=== PATIENT | female | born 1985 | race Caucasian/White ===

== ENCOUNTER 2016-04-26 14:43 | Emergency (ER) | payer OTHER ==
[2016-04-26 14:50] VITALS: BP 123/59; PULSE 78; TEMP 98; BMI 27.1
--- NOTE | 2016-04-26 14:51 | PDOC ---
Rapid Medical Evaluation Medical Evaluation: Allergies Allergy/AdvReac Type Severity Reaction Status Date / Time No Known Allergies Allergy Verified 04/26/16 14:46 04/26/16 14:48 I have performed a brief in-person evaluation of this patient. The patient presents with a chief complaint of: n/v decreased po intake, 13 weeks , had us today at medical assembler (Dr grijalva office) which was normal. urine hemoconcentrated Pertinent physical exam findings: VSS I have ordered the following: cbc, comp, mag, ua, ucx, The patient will proceed to the ED for further evaluation. <Raysa Jc - Last Filed: 04/26/16 14:48> Medical Evaluation: Allergies Allergy/AdvReac Type Severity Reaction Status Date / Time No Known Allergies Allergy Verified 04/26/16 14:46 Vital Signs Temp Pulse Resp BP Pulse Ox 98 F 78 18 123/59 100 04/26/16 14:46 04/26/16 14:46 04/26/16 14:46 04/26/16 14:46 04/26/16 14:46 <Marleny Epstein - Last Filed: 04/26/16 16:26> Chief Complaint: Nausea/Vomiting Time Seen by Provider: 04/26/16 14:48
[2016-04-26 15:11] LABS: BASOPHIL 0.4 % (0-2.0); EOSINOPHIL 0.4 % (0-4.5); MCH 30.1 pg (25.7-33.7); MCHC 34.4 g/dl (32.0-36.0); MEAN CELL VOLUME 87.5 fl (80-96); MEAN PLT VOLUME 7.3 fl (7.5-11.1); NEUTROPHILS 77.3 % (42.8-82.8); PLATELET COUNT 270 K/MM3 (134-434); RDW 11.9 % (11.6-15.6); WHITE BLOOD COUNT 9.5 K/mm3 (4.0-10.0)
[2016-04-26 15:38] LABS: ALBUMIN 3.6 g/dl (3.4-5.0); ALK PHOS 54 U/L (45-117); ANION GAP 7 (8-16); BILIRUBIN,TOTAL 0.5 mg/dL (0.2-1.0); CALCIUM 9.1 mg/dL (8.5-10.1); CO2 26 mmol/L (21-32); CREATININE 0.5 mg/dL (0.55-1.02); GLUCOSE,RANDOM 97 mg/dL (74-106); SGOT/AST 10 U/L (15-37); SGPT/ALT 14 U/L (12-78); TOT PROT 7.2 g/dl (6.4-8.2)
[2016-04-26] MEDS ORDERED: SODIUM CHLORIDE 1,000 ML IV STA ×2 (16:20→16:32)
[2016-04-26] MEDS ORDERED: METOCLOPRAMIDE HCL INJECTION 10 MG/2 ML VIAL IVPB ONE (16:32)
[2016-04-26] MEDS ORDERED: METOCLOPRAMIDE HCL INJECTION 10 MG/2 ML VIAL ONE (17:00)
[2016-04-26 17:42] LABS: URINE APPEARANCE CLOUDY; URINE BILIRUBIN NEGATIVE (NEGATIVE); URINE BLOOD NEGATIVE (NEGATIVE); URINE COLOR YELLOW; URINE GLUCOSE (UA) NEGATIVE (NEGATIVE); URINE KETONE NEGATIVE (NEGATIVE); URINE LEUK ESTERASE TRACE (NEGATIVE); URINE NITRITE NEGATIVE (NEGATIVE); URINE PROTEIN NEGATIVE (NEGATIVE); URINE UROBILINOGEN 2.0 E.U/dl E.U./dl (0.2-1.0)
[2016-04-26 17:56] LABS: URINE BACTERIA RARE /hpf (NONE SEEN); URINE MUCUS FEW; URINE RBC 6 /hpf (0-3); URINE WBC 31 /hpf (3-5)
--- NOTE | 2016-04-26 18:16 | PDOC ---
History of Present Illness - General History Source: Patient Exam Limitations: No Limitations <Dony Marino - Last Filed: 04/26/16 18:16> - General History Source: Patient Exam Limitations: No Limitations - History of Present Illness Initial Comments: 04/26/16 19:03 The patient is a 30-year-old female who is 13 weeks , A0, with no significant past medical history, who was sent to the ED by her EQUIPMENT OPERATOR WAGE HAND doctor for IV fluids. Pt visited her EQUIPMENT OPERATOR WAGE HAND doctor (Dr. Nieves) today and had an US that appeared normal. She is experiencing nausea vomiting for the past month. She does have an appetite but she is not able to tolerate food due to the nausea. Pt reports that she feels weak. The patient denies any fever, chills, diarrhea, or abdominal pain. The patient denies any dysuria. The patient denies any vaginal discharge or bleeding. EQUIPMENT OPERATOR WAGE HAND: Dr. Nieves <Marleny Epstein - Last Filed: 04/26/16 19:05> - General Chief Complaint: Nausea/Vomiting Stated Complaint: (PCP SENT) 13 WKS , DEHYDRATION Time Seen by Provider: 04/26/16 14:48 Past History - Past Medical History Asthma: No Cancer: No Cardiac Disorders: No Diabetes: No HTN: No Seizures: No Thyroid Disease: No Other medical history: muscle spasms - Psycho/Social/Smoking Cessation Hx Anxiety: No Suicidal Ideation: No Smoking History: Never smoked Have you smoked in the past 12 months: No Information on smoking cessation initiated: No Hx Alcohol Use: No Drug/Substance Use Hx: No Substance Use Type: None Hx Substance Use Treatment: No <Dony Marino - Last Filed: 04/26/16 18:16> <Marleny Epstein - Last Filed: 04/26/16 19:05> - Past Medical History Allergies/Adverse Reactions: Allergies Allergy/AdvReac Type Severity Reaction Status Date / Time No Known Allergies Allergy Verified 04/26/16 14:46 Home Medications: Ambulatory Orders Metoclopramide HCl [Reglan] 10 mg PO Q6H PRN #20 tablet 04/26/16 NK [No Known Home Medication] 04/26/16 Nitrofurantoin Monohyd/M-Cryst [Macrobid -] 100 mg PO BID #14 capsule 04/26/16 Review of Systems - Review of Systems Able to Perform ROS?: Yes Comments:: 04/26/16 19:03 GENERAL/CONSTITUTIONAL: No fever or chills. (+)weakness HEAD, EYES, EARS, NOSE AND THROAT: No change in vision. No ear pain or discharge. No sore throat. CARDIOVASCULAR: No chest pain or shortness of breath. RESPIRATORY: No cough, wheezing, or hemoptysis. GASTROINTESTINAL: No diarrhea or constipation. (+)nausea, vomiting GENITOURINARY: No dysuria, frequency, or change in urination. MUSCULOSKELETAL: No joint or muscle swelling or pain. No neck or back pain. SKIN: No rash NEUROLOGIC: No headache, vertigo, loss of consciousness, or change in strength/ sensation. ENDOCRINE: No increased thirst. No abnormal weight change. HEMATOLOGIC/LYMPHATIC: No anemia, easy bleeding, or history of blood clots. ALLERGIC/IMMUNOLOGIC: No hives or skin allergy. <Marleny Epstein - Last Filed: 04/26/16 19:05> *Physical Exam - Vital Signs Last Vital Signs Temp Pulse Resp BP Pulse Ox 98 F 78 18 123/59 100 04/26/16 14:46 04/26/16 14:46 04/26/16 14:46 04/26/16 14:46 04/26/16 14:46 <Dony Marino - Last Filed: 04/26/16 18:16> - Vital Signs Last Vital Signs Temp Pulse Resp BP Pulse Ox 98 F 78 18 123/59 100 04/26/16 14:46 04/26/16 14:46 04/26/16 14:46 04/26/16 14:46 04/26/16 14:46 - Physical Exam Comments: 04/26/16 19:04 GENERAL: Awake, alert, and fully oriented, in no acute distress HEAD: No signs of trauma EYES: PERRLA, EOMI, sclera anicteric, conjunctiva clear ENT: Auricles normal inspection, hearing grossly normal, nares patent, oropharynx clear without exudates. (+)Dry mucous membranes. NECK: Normal ROM, supple, no lymphadenopathy, JVD, or masses LUNGS: Breath sounds equal, clear to auscultation bilaterally. No wheezes, and no crackles HEART: Regular rate and rhythm, normal S1 and S2, no murmurs, rubs or gallops ABDOMEN: Soft, nontender, normoactive bowel sounds. No guarding, no rebound. No masses EXTREMITIES: Normal range of motion, no edema. No clubbing or cyanosis. No cords, erythema, or tenderness NEUROLOGICAL: Cranial nerves II through XII grossly intact. Normal speech, normal gait SKIN: Warm, Dry, normal turgor, no rashes or lesions noted <Marleny Epstein - Last Filed: 04/26/16 19:05> ED Treatment Course - LABORATORY CBC & Chemistry Diagram: 04/26/16 15:00 04/26/16 15:00 - ADDITIONAL ORDERS Additional order review: Laboratory Results 04/26/16 04/26/16 16:57 15:00 Sodium 142 Potassium 4.0 Chloride 109 H Carbon Dioxide 26 D Anion Gap 7 L BUN 9 D Creatinine 0.5 L Creat Clearance w eGFR > 60 Random Glucose 97 Calcium 9.1 Magnesium 2.0 Total Bilirubin 0.5 D AST 10 L D ALT 14 D Alkaline Phosphatase 54 D Total Protein 7.2 Albumin 3.6 D Urine Color Yellow Urine Appearance Cloudy Urine pH 7.0 Ur Specific [place] 1.023 Urine Protein Negative Urine Glucose (UA) Negative Urine Ketones Negative Urine Blood Negative Urine Nitrite Negative Urine Bilirubin Negative Urine Urobilinogen 2.0 e.u/dl H Ur Leukocyte Esterase Trace H Urine RBC 6 Urine WBC 31 Ur Epithelial Cells Moderate Urine Bacteria Rare Urine Mucus Few 04/26/16 15:00 RBC 4.58 D MCV 87.5 MCHC 34.4 RDW 11.9 D MPV 7.3 L D Neutrophils % 77.3 Lymphocytes % 16.5 Monocytes % 5.4 Eosinophils % 0.4 D Basophils % 0.4 - Medications Given in the ED: ED Medications Discontinued Medications Generic Name Dose Route Start Last Admin Trade Name Freq PRN Reason Stop Dose Admin Sodium Chloride 1,000 mls @ 1,000 mls/hr 04/26/16 16:20 04/26/16 16:59 Normal Saline - IV 04/26/16 17:19 1,000 mls/hr ASDIR STA Administration Sodium Chloride 1,000 mls @ 1,000 mls/hr 04/26/16 16:32 04/26/16 16:59 Normal Saline - IV 04/26/16 17:31 1,000 mls/hr ASDIR STA Administration Metoclopramide HCl 10 mg 04/26/16 16:32 04/26/16 17:04 Reglan Injection - IVPB 04/26/16 16:33 10 mg ONCE ONE Administration <Dony Marino - Last Filed: 04/26/16 18:16> - LABORATORY CBC & Chemistry Diagram: 04/26/16 15:00 04/26/16 15:00 - ADDITIONAL ORDERS Additional order review: Laboratory Results 04/26/16 04/26/16 16:57 15:00 Sodium 142 Potassium 4.0 Chloride 109 H Carbon Dioxide 26 D Anion Gap 7 L BUN 9 D Creatinine 0.5 L Creat Clearance w eGFR > 60 Random Glucose 97 Calcium 9.1 Magnesium 2.0 Total Bilirubin 0.5 D AST 10 L D ALT 14 D Alkaline Phosphatase 54 D Total Protein 7.2 Albumin 3.6 D Urine Color Yellow Urine Appearance Cloudy Urine pH 7.0 Ur Specific [place] 1.023 Urine Protein Negative Urine Glucose (UA) Negative Urine Ketones Negative Urine Blood Negative Urine Nitrite Negative Urine Bilirubin Negative Urine Urobilinogen 2.0 e.u/dl H Ur Leukocyte Esterase Trace H Urine RBC 6 Urine WBC 31 Ur Epithelial Cells Moderate Urine Bacteria Rare Urine Mucus Few 04/26/16 15:00 RBC 4.58 D MCV 87.5 MCHC 34.4 RDW 11.9 D MPV 7.3 L D Neutrophils % 77.3 Lymphocytes % 16.5 Monocytes % 5.4 Eosinophils % 0.4 D Basophils % 0.4 - Medications Given in the ED: ED Medications Discontinued Medications Generic Name Dose Route Start Last Admin Trade Name Freq PRN Reason Stop Dose Admin Sodium Chloride 1,000 mls @ 1,000 mls/hr 04/26/16 16:20 04/26/16 16:59 Normal Saline - IV 04/26/16 17:19 1,000 mls/hr ASDIR STA Administration Sodium Chloride 1,000 mls @ 1,000 mls/hr 04/26/16 16:32 04/26/16 16:59 Normal Saline - IV 04/26/16 17:31 1,000 mls/hr ASDIR STA Administration Metoclopramide HCl 10 mg 04/26/16 16:32 04/26/16 17:04 Reglan Injection - IVPB 04/26/16 16:33 10 mg ONCE ONE Administration <Marleny Epstein - Last Filed: 04/26/16 19:05> Medical Decision Making - Medical Decision Making 04/26/16 18:17 A portion of this note was documented by scribe services under my direction. I have reviewed the details of the note, within reason, and agree with the documentation with the following case summary and management plan written by me. Patient treated in the ED. Nursing notes are reviewed and incorporated into the medical decision-making. Vital signs reviewed. Peripheral IV access obtained by the nurse, laboratory studies are drawn and sent, reviewed and interpreted by myself. Vital Signs Temp Pulse Resp BP Pulse Ox 98 F 78 18 123/59 100 04/26/16 14:46 04/26/16 14:46 04/26/16 14:46 04/26/16 14:46 04/26/16 14:46 22-year-old female with no past medical history, approximately with 13 weeks sent in by her EQUIPMENT OPERATOR WAGE HAND's doctor's office for hyperemesis gravidarum. She had reportedly had several weeks of nausea and vomiting and poor appetite. She reports that this is similar like her first . She had visited her EQUIPMENT OPERATOR WAGE HAND doctor's office today where she had an ultrasound performed by 's office and was reportedly normal. Patient denies abdominal pain or vaginal bleeding. She was sent in for IVF. I suspect that the patient has hyperemesis gravidarum. CBC, BMP 04/26/16 15:00 04/26/16 15:00 CMP Sodium 142 mmol/L (136-145) 04/26/16 15:00 Potassium 4.0 mmol/L (3.5-5.1) 04/26/16 15:00 Chloride 109 mmol/L (98-107) H 04/26/16 15:00 Carbon Dioxide 26 mmol/L (21-32) D 04/26/16 15:00 Anion Gap 7 (8-16) L 04/26/16 15:00 BUN 9 mg/dL (7-18) D 04/26/16 15:00 Creatinine 0.5 mg/dL (0.55-1.02) L 04/26/16 15:00 Creat Clearance w eGFR > 60 (>60) 04/26/16 15:00 Random Glucose 97 mg/dL (74-106) 04/26/16 15:00 Calcium 9.1 mg/dL (8.5-10.1) 04/26/16 15:00 Magnesium 2.0 mg/dL (1.8-2.4) 04/26/16 15:00 Total Bilirubin 0.5 mg/dL (0.2-1.0) D 04/26/16 15:00 AST 10 U/L (15-37) L D 04/26/16 15:00 ALT 14 U/L (12-78) D 04/26/16 15:00 Alkaline Phosphatase 54 U/L (45-117) D 04/26/16 15:00 Total Protein 7.2 g/dl (6.4-8.2) 04/26/16 15:00 Albumin 3.6 g/dl (3.4-5.0) D 04/26/16 15:00 Urine Test Results Urine Color Yellow 04/26/16 16:57 Urine Appearance Cloudy 04/26/16 16:57 Urine pH 7.0 (5.0-8.0) 04/26/16 16:57 Ur Specific [place] 1.023 (1.001-1.035) 04/26/16 16:57 Urine Protein Negative (NEGATIVE) 04/26/16 16:57 Urine Glucose (UA) Negative (NEGATIVE) 04/26/16 16:57 Urine Ketones Negative (NEGATIVE) 04/26/16 16:57 Urine Blood Negative (NEGATIVE) 04/26/16 16:57 Urine Nitrite Negative (NEGATIVE) 04/26/16 16:57 Urine Bilirubin Negative (NEGATIVE) 04/26/16 16:57 Ur Leukocyte Esterase Trace (NEGATIVE) H 04/26/16 16:57 Urine RBC 6 /hpf (0-3) 04/26/16 16:57 Urine WBC 31 /hpf (3-5) 04/26/16 16:57 Ur Epithelial Cells Moderate /hpf (FEW) 04/26/16 16:57 Urine Bacteria Rare /hpf (NONE SEEN) 04/26/16 16:57 Urine Mucus Few 04/26/16 16:57 Patient was given 2 L of IV fluids and Reglan with significant improvement of symptoms. Patient tolerated by mouth here. Incidentally, patient is urine is infected. We'll prescribe Macrobid. Patient verbalizes understanding and requests to go home. Return precautions given. She will follow with her EQUIPMENT OPERATOR WAGE HAND doctor. I discussed the physical exam findings, ancillary test results and final diagnoses with the patient. I answered all of the patient's questions. The patient was satisfied with the care received and felt comfortable with the discharge plan and treatment plan. The patient will call their primary care physician within 24 hours to arrange follow-up and will return to the Emergency Department with any new, persistant or worsening symptoms. <Dony Marino - Last Filed: 04/26/16 18:16> *DC/Admit/Observation/Transfer - Discharge Dispostion Admit: No <Dony Marino - Last Filed: 04/26/16 18:16> - Attestations Scribe Attestion: 04/26/16 19:05 Documentation prepared by Marleny Epstein, acting as medical technologist microbiology for Dony Marino MD. <Marleny Epstein - Last Filed: 04/26/16 19:05> Diagnosis at time of Disposition: Hyperemesis gravidarum UTI (urinary tract infection) Qualifiers: Urinary tract infection type: site unspecified Hematuria presence: without hematuria Qualified Code(s): N39.0 - Urinary tract infection, site not specified - Discharge Dispostion Disposition: HOME Condition at time of disposition: Improved - Prescriptions Prescriptions: Nitrofurantoin Monohyd/M-Cryst [Macrobid -] 100 mg PO BID #14 capsule Metoclopramide HCl [Reglan] 10 mg PO Q6H PRN #20 tablet PRN Reason: Nausea - Patient Instructions Printed Discharge Instructions: DI for Hyperemesis Gravidarum, DI for Urinary Tract Infection (UTI) Additional Instructions: Please take the macrobid as prescribed for 1 week. For nausea, take 10 mg reglan every 6 hours as needed. Both these medications are safe for . Drink plenty of fluids and rest. Follow up with your follow up manager doctor.
[2016-04-26] MEDS ORDERED: NITROFURANTOIN MACROCRYSTAL 50 MG CAPSULE (FP) ONE (19:13)
[2016-04-26] MEDS ORDERED: NITROFURANTOIN MACROCRYSTAL 50 MG CAPSULE (FP) PO SCH (19:15)
== END 2016-04-26 19:16 | disposition home or self-care (01) ==
LOC: JER 14:43
PROC: 3E0337Z Introduction of Electrolytic and Water Balance Substance into Peripheral Vein, Percutaneous Approach (ICD-10-PCS; principal; 2016-04-26)
PROC: 3E033GC Introduction of Other Therapeutic Substance into Peripheral Vein, Percutaneous Approach (ICD-10-PCS; 2016-04-26)
DX: O21.1 Hyperemesis gravidarum with metabolic disturbance (principal); Z3A.13 13 weeks gestation of pregnancy
CPT/HCPCS: 36415; 80053; 81003; 81015; 83735; 85025; 87086; 99282-25

== ENCOUNTER 2016-06-25 09:39 | Emergency (ER) | payer OTHER ==
[2016-06-25 09:49] VITALS: BMI 27.4
[2016-06-25 11:11] VITALS: BP 99/61; PULSE 82; TEMP 97.7
--- NOTE | 2016-06-25 11:38 | PDOC ---
History of Present Illness - General Chief Complaint: Labor Assessment Stated Complaint: BACK PAIN (21 WKS ) Time Seen by Provider: 06/25/16 11:37 History Source: Patient Exam Limitations: No Limitations - History of Present Illness Initial Comments: CHIEF COMPLAINT: 30 y/o afebrile, approximately 21 week gravid female c/o upper right neck and back pain today. HISTORY OF PRESENT ILLNESS: The patient states that she was doing a lot of cleaning and lifting yesterday. She woke up this morning and the right side of her neck and upper back were sore. She also admitted to some abdominal soreness and was evaluated and cleared by L&D prior to coming to be evaluated in the ER. She denies fall, head trauma, changes in vision/hearing, n/v/d, CP, SOB, vaginal bleeding, abnormal vaginal discharge. Vital signs on arrival are notable for pulse of 93. REVIEW OF SYSTEMS: GENERAL/CONSTITUTIONAL: No fever/chills. No weakness. No weight change. HEAD, EYES, EARS, NOSE AND THROAT: No change in vision. No ear pain or discharge. No sore throat. CARDIOVASCULAR: No chest pain or shortness of breath. RESPIRATORY: No cough, wheezing, or hemoptysis. GASTROINTESTINAL: +abd soreness. No nausea, vomiting, diarrhea. GENITOURINARY: No dysuria, frequency, or change in urination. MUSCULOSKELETAL: No joint or muscle swelling or pain. +right neck and upper back pain. SKIN: No rash or easy bruising. NEUROLOGIC: No headache, vertigo, loss of consciousness, or loss of sensation. PHYSICAL EXAM: GENERAL: The patient is awake, alert, and fully oriented, in no acute distress. She is well appearing and ambulatory, in NAD or obvious discomfort. HEAD: Normal with no signs of trauma. NECK: Reproducible pain with palpation of right trapezius and right paravertebral cervical muscles. No midline cervical spine TTP or step offs. Full ROM of cervical spine. ENT: Pupils equal, round and reactive to light, extraocular movements intact, sclera anicteric, conjunctiva clear. LUNGS: Clear to auscultation bilaterally. Normal excursion. No respiratory distress or use of accessory muscles. CV: RRR, S1/S2, no MRG. Cap refill < 2 sec. ABDOMEN: Soft, non-distended, non-tender even to deep palpation, no hepatomegaly or splenomegaly, no masses. BACK: Reproducible pain with palpation along right sternal border. No midline thoracic spine TTP or step offs. EXTREMITIES: Normal range of motion, no edema. NEUROLOGICAL: Normal speech, normal gait. CN II-XII grossly intact. SKIN: Warm, dry, normal turgor, no rashes or lesions noted. Past History - Past Medical History Allergies/Adverse Reactions: Allergies Allergy/AdvReac Type Severity Reaction Status Date / Time No Known Allergies Allergy Verified 06/25/16 09:44 Home Medications: Ambulatory Orders NK [No Known Home Medication] 04/26/16 Asthma: No Cancer: No Cardiac Disorders: No Diabetes: No HTN: No Seizures: No Thyroid Disease: No - Psycho/Social/Smoking Cessation Hx Anxiety: No Suicidal Ideation: No Smoking History: Never smoked Have you smoked in the past 12 months: No Information on smoking cessation initiated: No Hx Alcohol Use: No Drug/Substance Use Hx: No Substance Use Type: None Hx Substance Use Treatment: No *Physical Exam - Vital Signs Last Vital Signs Temp Pulse Resp BP Pulse Ox 97.7 F 82 18 99/61 100 06/25/16 10:26 06/25/16 10:26 06/25/16 10:26 06/25/16 10:26 06/25/16 09:44 Medical Decision Making - Medical Decision Making A/P: 30 y/o, approximately 21 week gravid female with muscular right sided right neck and shoulder pain. Suggested Tylenol at home for pain, as well as massage to affected area. Pt instructed to return to the ER with any worsening or concerning symptoms. The patient verbalizes understanding of all instructions, has no further questions and is awaiting discharge. *DC/Admit/Observation/Transfer Diagnosis at time of Disposition: Musculoskeletal back pain Neck muscle strain Qualifiers: Encounter type: initial encounter Qualified Code(s): S16.1XXA - Strain of muscle, fascia and tendon at neck level, initial encounter - Discharge Dispostion Disposition: HOME Condition at time of disposition: Good - Patient Instructions Printed Discharge Instructions: DI for Muscle Strain Additional Instructions: DISCHARGE TO HOME TO RETURN TO LABOR AND DELIVERY IF HAVING REGULAR CONTRACTIONS , PERIOD LIKE VAGINAL BLEEDING, YOU BREAK YOUR WATER OR YOU ARE NOT FEELING YOUR BABY MOVE. Apply heating pad and massage to affected areas. You can take Tylenol for pain if needed Avoid heavy lifting Return to the ER with any worsening or concerning symptoms
[2016-06-25] MEDS ORDERED: ACETAMINOPHEN 325 MG TABLET (FP) PO ONE (11:50)
[2016-06-25] MEDS ORDERED: ACETAMINOPHEN 325 MG TABLET (FP) ONE (11:52)
== END 2016-06-25 12:10 | disposition home or self-care (01) ==
LOC: JERFT 09:39 → JER 09:39 → JERFT 12:10
DX: S16.1XXA Strain of muscle, fascia and tendon at neck level, initial encounter (principal); X50.0XXA Overexertion from strenuous movement or load, initial encounter; X50.9XXA Other and unspecified overexertion or strenuous movements or postures, initial encounter; Y93.E9 Activity, other interior property and clothing maintenance; Y92.038 Other place in apartment as the place of occurrence of the external cause; Y99.8 Other external cause status; Z3A.21 21 weeks gestation of pregnancy
CPT/HCPCS: 99281-25

== ENCOUNTER 2016-09-05 06:49 | Emergency (ER) | payer OTHER ==
[2016-09-05 07:05] VITALS: BMI 28.0
[2016-09-05 07:30] LABS: URINE APPEARANCE CLEAR; URINE BILIRUBIN NEGATIVE (NEGATIVE); URINE BLOOD NEGATIVE (NEGATIVE); URINE COLOR YELLOW; URINE GLUCOSE (UA) NEGATIVE (NEGATIVE); URINE KETONE NEGATIVE (NEGATIVE); URINE LEUK ESTERASE NEGATIVE (NEGATIVE); URINE NITRITE NEGATIVE (NEGATIVE); URINE PROTEIN NEGATIVE (NEGATIVE); URINE UROBILINOGEN NEGATIVE mg/dL (0.2-1.0)
[2016-09-05 08:23] VITALS: TEMP 97.8
--- NOTE | 2016-09-05 09:02 | PDOC ---
History of Present Illness - General Chief Complaint: Urinary Problem Stated Complaint: PAIN/31 WKS Time Seen by Provider: 09/05/16 08:56 History Source: Patient Exam Limitations: No Limitations - History of Present Illness Initial Comments: 09/05/16 09:52 HPI: This 31 yr old 31 week female with co suprapubic and left upper back pain since this AM. She does not recall any recent trauma or injury. She had a similar pain in June resolved with tylenol and no ill effects to preganacy. She is without vaginal bleeding or drainage. Chief Compliant:pain PMH: none FH: Pt has not recently traveled outside the country in the last 30 days. Pt has not been in contact with people who have traveled out of the country, in contact with people who have been ill with fever, n, v, d. SH: smoking use: NONE illicit drug use: NONE alcohol use: NONE PSH: Home med use noted on APR Allergies: nka Immunizations: PCP: [facility]ENING MACHINE OPERATOR [facility] LMP: G 2P1 : Timing/Duration: momentarily Past History - Past Medical History Allergies/Adverse Reactions: Allergies Allergy/AdvReac Type Severity Reaction Status Date / Time No Known Allergies Allergy Verified 09/05/16 07:00 Home Medications: Ambulatory Orders NK [No Known Home Medication] 04/26/16 Asthma: No Cancer: No Cardiac Disorders: No Diabetes: No HTN: No Seizures: No Thyroid Disease: No Other medical history: none - Reproductive History Is Patient Now?: Yes Cervical CA: No Dysfunctional Uterine Bleeding: No Ectopic : No Endometrial CA: No Polycystic Ovaries: No Therapeutic (s) & number: No Tubal Ligation: No - Psycho/Social/Smoking Cessation Hx Anxiety: No Suicidal Ideation: No Smoking History: Never smoked Have you smoked in the past 12 months: No Information on smoking cessation initiated: No Hx Alcohol Use: No Drug/Substance Use Hx: No Substance Use Type: None Hx Substance Use Treatment: No Review of Systems - Review of Systems Able to Perform ROS?: Yes Comments:: 09/05/16 09:55 General statement: Hematology: neg history of bleeding/blood thinners Skin: Neg for lesions, rash, bruising. HEENT: Neg symptoms Respiratory: Neg SOB or difficulty in breathing Cardiac: Neg chest pain GI: Neg pain, n/v : Neg problems on voiding MS: Neg for joint pain/stiffness, no edema, + abd and back muscle pain Neuro: Neg for LOC, weakness, Endocrine: Neg for excess thirst/hunger, cold/heat intolerance, excess sweating Allergies: Neg for allergies *Physical Exam - Vital Signs Last Vital Signs Temp Pulse Resp BP Pulse Ox 97.8 F 85 20 100/65 98 09/05/16 08:13 09/05/16 08:13 09/05/16 08:13 09/05/16 08:13 09/05/16 07:01 - Physical Exam Comments: 09/05/16 09:55 General Appearance: Yes: Nourished HEENT: positive: Normal Voice Respiratory/Chest: positive: Lungs Clear Cardiovascular: positive: Regular Rhythm, Regular Rate Gastrointestinal/Abdominal: positive: Flat, Soft, Other ( with fetus above umbilicus) Extremity: positive: Normal Inspection Integumentary: positive: Dry, Warm ED Treatment Course - ADDITIONAL ORDERS Additional order review: Laboratory Results 09/05/16 07:00 Urine Color Yellow Urine Appearance Clear Urine pH 6.0 Urine Protein Negative Urine Glucose (UA) Negative Urine Ketones Negative Urine Blood Negative Urine Nitrite Negative Urine Bilirubin Negative Urine Urobilinogen Negative Ur Leukocyte Esterase Negative Medical Decision Making - Medical Decision Making 09/05/16 09:49 Pt seen and examined. at bedside A/P 31 yr old female of 31 weeks is c/o lower abd/suprapubic pain. she states it radiates to the left upper back above flank area. No CV tenderness. Suspicious for muscular and ligamental pulling 1. UA negative 2. L&D exam, negative 3. u/s kidney pending 4. tylenol for pain. 5. dispo to home with f/up with HARDENING MACHINE OPERATOR HELPER next week 09/05/16 09:57 09/05/16 10:37 Pt with neg u/s showing bilateral hydronephrosis from probable will discharge patient with tylenol and follow up *DC/Admit/Observation/Transfer Diagnosis at time of Disposition: Musculoskeletal back pain - Discharge Dispostion Disposition: HOME Condition at time of disposition: Good Admit: No - Patient Instructions Printed Discharge Instructions: Managing Symptoms of Additional Instructions: CLEARED OBSTETRICALLY. RETURN TO THE EMERGENCY DEPARTMENT FOR EVALUATION OF BACK AND SUPRAPUBIC PAIN. MAKE APPOINTMENT TO BE SEEN BY YOUR LAUNDROMAT WORKER NEXT WEEK. IF YOU HAVE REGULAR CONTRACTIONS, MEMBRANES RUPTURE OR YOU HAVE DECREASED MOVEMENT, RETURN TO THE HOSPITAL. Discharge instructions 1. Please follow up with your primary physician within the next few days and explain that you have been seen here in the Emergency Room. 2. If you experience any worsening of symptoms, please return to the ER 3. Rest, no heavy lifting or pulling. Take tylenol for pain 4. Drink plenty of water
[2016-09-05] MEDS ORDERED: ACETAMINOPHEN 325 MG TABLET (FP) PO ONE (09:05)
[2016-09-05] MEDS ORDERED: ACETAMINOPHEN 325 MG TABLET (FP) ONE (09:14)
[2016-09-05 10:55] VITALS: BP 106/71; PULSE 68
== END 2016-09-05 10:50 | disposition home or self-care (01) ==
LOC: JER 06:49
DX: O26.893 Other specified pregnancy related conditions, third trimester (principal); M54.6 Pain in thoracic spine; R10.33 Periumbilical pain; Z3A.31 31 weeks gestation of pregnancy
CPT/HCPCS: 76775-TC; 81003; 87086; 99282-25

== ENCOUNTER 2016-10-24 11:10 | Inpatient (IN) | payer OTHER ==
[2016-10-24] MEDS: ELECTROLYTE-148 SOLN 1,000 ML IV SCH ×2 (11:30→18:20)
[2016-10-24 12:02] LABS: BASOPHIL 0.5 % (0-2.0); EOSINOPHIL 0.3 % (0-4.5); MCH 29.8 pg (25.7-33.7); MCHC 33.9 g/dl (32.0-36.0); MEAN PLT VOLUME 8.3 fl (7.5-11.1); NEUTROPHILS 74.8 % (42.8-82.8); PLATELET COUNT 191 K/MM3 (134-434); RDW 12.3 % (11.6-15.6); WHITE BLOOD COUNT 7.4 K/mm3 (4.0-10.0)
[2016-10-24 12:14] VITALS: BMI 31.1
[2016-10-24 12:14] LABS: INR 0.98 (0.82-1.09); PROTHROMBIN TIME (PATIENT) 10.8 SEC (9.98-11.88)
[2016-10-24 12:16] LABS: ACTIVATED PTT 26.8 SECONDS (26.9-34.4)
[2016-10-24 12:31] LABS: ANION GAP 9 (8-16); CALCIUM 8.4 mg/dL (8.5-10.1); CO2 24 mmol/L (21-32); CREATININE 0.5 mg/dL (0.55-1.02); GLUCOSE,RANDOM 110 mg/dL (74-106)
[2016-10-24] MEDS ORDERED: PROMETHAZINE HCL 25 MG/1 ML VIAL IVPUSH ONE ×2 (13:42→23:30)
[2016-10-24] MEDS ORDERED: BUTORPHANOL TARTRATE 1 MG/ML VIAL IVPB ONE (13:42)
--- NOTE | 2016-10-24 13:49 | HP ---
Past Medical History - Admission History of Present Illness: 31 y/o with SIUP at 38.2 weeks gestation here after being seen by MFM for ultrasound 2/2 EFW < 10%ile on previous scan. Ultrasound today showed EFW < 10%ile as well as DEAN 3.8 (was 9.1 2 days ago). otherwise uncomplicated. +FM, no VB/Ctx. ?Discharge vs. LOF over the past 2 days. History Source: Patient, Medical Record - Past Medical History Cardiovascular: No: HTN, [place] Pulmonary: No: Asthma, COPD Gastrointestinal: No: Inflamatory Bowel Disease Hepatobiliary: No: Cholecystitis, Hepatitis B Renal/: No: UTI Reproductive: No: Ectopic , Fibroids, PID ...: 2 ...Para: 1 ...Term: 1 ...: 0 ...Spon : 0 ...Induced : 0 ...Multiple Gestation: 0 ...LMP: 01/31/16 ... 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) Psych: No: Anxiety, Bipolar, Depression Dermatology: No: Eczema, Melanoma - Past Surgical History Past Surgical History: Yes: None Hx Myomectomy: No Hx Transabdominal Cerclage: No - Smoking History Smoking history: Never smoked Have you smoked in the past 12 months: No - Alcohol/Substance Use Hx Alcohol Use: No History of Substance Use: reports: None - Social History Usual Living Arrangement: Yes: With Spouse History of Recent Travel: No Home Medications - Allergies Allergies/Adverse Reactions: Allergies Allergy/AdvReac Type Severity Reaction Status Date / Time No Known Allergies Allergy Verified 10/21/16 11:40 - Home Medications Home Medications: Ambulatory Orders NK [No Known Home Medication] 04/26/16 Review of Systems - Review of Systems Constitutional: reports: No Symptoms Eyes: reports: No Symptoms HENT: reports: No Symptoms Neck: reports: No Symptoms Cardiovascular: reports: No Symptoms Respiratory: reports: No Symptoms Gastrointestinal: reports: No Symptoms Genitourinary: reports: No Symptoms Breasts: reports: No Symptoms Reported Musculoskeletal: reports: No Symptoms Integumentary: reports: No Symptoms Neurological: reports: No Symptoms Endocrine: reports: No Symptoms Hematology/Lymphatic: reports: No Symptoms Psychiatric: reports: No Symptoms Physical Exam - Maternity Vital Signs: Vital Signs Temperature 98 F 10/24/16 11:50 Pulse Rate 90 10/24/16 13:00 Respiratory Rate 20 10/24/16 13:00 Blood Pressure 106/69 10/24/16 13:00 O2 Sat by Pulse Oximetry (%) Constitutional: Yes: Well Nourished, No Distress, Calm Eyes: Yes: Conjunctiva Clear, EOM Intact HENT: Yes: Atraumatic, Normocephalic Neck: Yes: Supple, Trachea Midline Cardiovascular: Yes: Regular Rate and Rhythm Lungs: Clear to auscultation - Abdominal Exam/OB Fundal Height: 37 Number of Fetuses: Single Presentation: Vertex Contractions: No Category: I Accelerations: Uniform Decelerations: None - Vaginal Exam/OB Dilatation (cm): 0 Effacement (%): 0 Presentation: Vertex/Position Station: -3 - Physical Exam Psychiatric: Yes: Alert, Oriented - Labs Lab Results: CBC, BMP 10/24/16 11:56 10/24/16 11:56 Hemorrhage Risk Assessment - Risk Factors Medium Risk Factors: Yes: None High Risk Factors: Yes: None Risk Score: 1 Risk Level: Medium Risk Problem List - Problems (1) Oligohydramnios antepartum Code(s): O41.00X0 - OLIGOHYDRAMNIOS, UNSP TRIMESTER, NOT APPLICABLE OR UNSP (2) Term Code(s): Z34.80 - ENCOUNTER FOR SUPRVSN OF NORMAL , UNSP TRIMESTER (3) IUGR (intrauterine growth restriction) affecting care of mother Code(s): O36.5990 - MATERN CARE FOR OTH OR SUSP POOR FETL GRTH, UNSP TRI, UNSP Assessment/Plan 31 y/o with SIUP at 38 weeks, oligohyramnios and iUGR, for IOL - AFVSS -FHTS cat 1 - IOL, cervidil placed at this time - GBS positive, to start ampicillin if ROM or labor
[2016-10-24] MEDS ORDERED: DINOPROSTONE 10 MG VAGINAL SUPPOSITORY VG ONE (13:50)
[2016-10-24] MEDS ORDERED: BUTORPHANOL TARTRATE 1 MG/ML VIAL IVPUSH ONE (23:30)
[2016-10-25] MEDS: ELECTROLYTE-148 SOLN 1,000 ML IV SCH (02:00)
[2016-10-25] MEDS ORDERED: AMPICILLIN - 2 GM in SODIUM CHLORIDE 100 ML IVPB ONE (06:30)
[2016-10-25] MEDS ORDERED: FENTANYL/BUPIVACAINE/NS/PF - PCEA - 50 ML DISP.SYRIN EP SCH (07:15)
[2016-10-25] MEDS ORDERED: OXYTOCIN 15 UNITS/ LR 250 ML 250 ML IVPB SCH (07:15)
[2016-10-25] MEDS ORDERED: PCA PUMP KEY 1 EACH EACH ONE (08:24)
--- NOTE | 2016-10-25 09:08 | PN ---
Delivery - Delivery Vaginal Delivery: No Problems Type of Anesthesia: Epidural Episiotomy/Laceration: None EBL (cc): 350 Delivery, Single - Stages of Labor Date of Delivery: 10/25/16 Time of Delivery: 08:49 Date Placenta Delivered: 10/25/16 Time Placenta Delivered: :53 Placenta: Yes: Spontaneous - Condition of Gender: Male Position: Left, OA - 1 Minute Total Score: 9 5 Minutes Total Score: 9 - Feeding Plan Initial Plan: Elected not to breastfeed exclusively throughout hospitalization Remarks - Remarks Remarks: Uncomplicated of baby boy from VADIM position across intact perineum anterior shoulder (right) delivered with ease along with remainder of delayed cord clamping X 1 minute completed cord clamped and cut nose and mouth bulb suctioned Apgars 9/9 placenta delivered in tact and spontaneously no laceration noted some uterine atony noted after delivery - one dose of 0.2mg IM methergine given , good tone after minimal lochia s/p delivery sponge count correct after delivery
[2016-10-25] MEDS ORDERED: BISACODYL 10 MG SUPP.RECT RC PRN (09:09)
[2016-10-25] MEDS ORDERED: BENZOCAINE 20% 57 GM BOTTLE TP PRN (09:09)
[2016-10-25] MEDS ORDERED: METHYLERGONOVINE MALEATE 0.2 MG/1 ML AMP IM PRN (09:09)
[2016-10-25] MEDS ORDERED: BENZOCAINE 28 GM HEMORRHOIDAL OINTMENT TP PRN (09:09)
[2016-10-25] MEDS ORDERED: WITCH HAZEL 50% (TUCKS) 40 PAD/JAR PAD TP PRN (09:09)
[2016-10-25] MEDS ORDERED: OXYTOCIN 20 UNITS in 0.9% NS 1,000 ML IV SCH (09:15)
[2016-10-25] MEDS ORDERED: AMPICILLIN - 1 GM in SODIUM CHLORIDE 100 ML IVPB SCH (10:30)
[2016-10-25] MEDS: IBUPROFEN 600 MG TABLET (FP) PO PRN (11:03)
[2016-10-25] MEDS: PRENATAL VITAMINS W/ FOLIC ACID TABLET (FP) PO SCH (11:03)
[2016-10-25] MEDS ORDERED: TUBERCULIN PPD 5 TU/0.1ML SYRINGE (IN PATIENT USE ONLY) ID ONE (11:30)
[2016-10-25] MEDS: ACETAMINOPHEN 325 MG TABLET (FP) PO PRN (11:58)
[2016-10-26 07:56] LABS: BASOPHIL 0.2 % (0-2.0); EOSINOPHIL 0.6 % (0-4.5); MCHC 33.9 g/dl (32.0-36.0); MEAN CELL VOLUME 88.7 fl (80-96); MEAN PLT VOLUME 8.7 fl (7.5-11.1); NEUTROPHILS 75.1 % (42.8-82.8); PLATELET COUNT 180 K/MM3 (134-434); RDW 12.1 % (11.6-15.6); WHITE BLOOD COUNT 13.3 K/mm3 (4.0-10.0)
--- NOTE | 2016-10-26 08:50 | PN ---
Post Progress Note - Subjective Subjective: 31 yo Para 2, status post normal vaginal delivery, seen and evaluated. Doing well. Post Day: 1 Type of Delivery: Vital Signs: Vital Signs Temperature 98.1 F 10/26/16 06:00 Pulse Rate 88 10/26/16 06:00 Respiratory Rate 18 10/26/16 06:00 Blood Pressure 116/72 10/26/16 06:00 O2 Sat by Pulse Oximetry (%) 100 10/25/16 06:50 Breast Exam: Yes: Soft Uterus: Yes: Fundus Firm Incision: Yes: Dressing dry and intact Abdomen/GI: Yes: Abdomen soft, Tolerating PO Lochia: Yes: Rubra Lochia, amount: Small Extremities: Yes: Calves non-tender Activity: Ambulating - Labs Labs: CBC WBC 13.3 K/mm3 (4.0-10.0) H D 10/26/16 07:00 RBC 3.49 M/mm3 (3.60-5.2) L D 10/26/16 07:00 Hgb 10.5 GM/dL (10.7-15.3) L D 10/26/16 07:00 Hct 31.0 % (32.4-45.2) L D 10/26/16 07:00 MCV 88.7 fl (80-96) 10/26/16 07:00 MCH 30.0 pg (25.7-33.7) 10/26/16 07:00 MCHC 33.9 g/dl (32.0-36.0) 10/26/16 07:00 RDW 12.1 % (11.6-15.6) 10/26/16 07:00 Plt Count 180 K/MM3 (134-434) 10/26/16 07:00 MPV 8.7 fl (7.5-11.1) 10/26/16 07:00 Neutrophils % 75.1 % (42.8-82.8) 10/26/16 07:00 Lymphocytes % 18.0 % (8-40) 10/26/16 07:00 Monocytes % 6.1 % (3.8-10.2) 10/26/16 07:00 Eosinophils % 0.6 % (0-4.5) D 10/26/16 07:00 Basophils % 0.2 % (0-2.0) 10/26/16 07:00 Assessment/Plan Status post vaginal delivery Stable Continue routine care
[2016-10-26] MEDS: PRENATAL VITAMINS W/ FOLIC ACID TABLET (FP) PO SCH (09:24)
[2016-10-26] MEDS ORDERED: SENNOSIDES/DOCUSATE COMBO (SENNA PLUS) TABLET (UD) PO PRN (22:00)
[2016-10-26] MEDS: IBUPROFEN 600 MG TABLET (FP) PO PRN (23:16)
[2016-10-26] MEDS: ACETAMINOPHEN 325 MG TABLET (FP) PO PRN (23:16)
[2016-10-27 08:36] VITALS: BP 112/71; PULSE 72; TEMP 98.2
[2016-10-27] MEDS: PRENATAL VITAMINS W/ FOLIC ACID TABLET (FP) PO SCH (09:44)
== END 2016-10-27 14:00 | disposition home or self-care (01) | DRG 775 ==
LOC: JLDR 11:10 → J3W 10-25 10:23
PROVIDERS: ADMIT Obstetrics & Gynecology; ATTEND Obstetrics & Gynecology
PROC: 10E0XZZ Delivery of Products of Conception, External Approach (ICD-10-PCS; principal; 2016-10-25)
PROC: 3E0P7GC Introduction of Other Therapeutic Substance into Female Reproductive, Via Natural or Artificial Opening (ICD-10-PCS; 2016-10-25)
DX: O41.03X0 Oligohydramnios, third trimester, not applicable or unspecified (principal); O99.824 Streptococcus B carrier state complicating childbirth; O36.5930 Maternal care for other known or suspected poor fetal growth, third trimester, not applicable or unspecified; Z3A.38 38 weeks gestation of pregnancy; Z37.0 Single live birth
CPT/HCPCS: 36415; 59409; 80048; 85025; 85610; 85730; 86593; 86850; 86900; 86901